=== PATIENT | male | born 2000 | race Caucasian/White ===

== ENCOUNTER 2025-09-17 16:58 | Emergency (ER) | payer OTHER, SELFPAY ==
[2025-09-17 17:04] VITALS: BP 134/87; PULSE 87; RESP 18; TEMP 36.6; O2SAT 98
--- NOTE | 2025-09-17 17:58 | ED.GENADUL_ITS ---
Discharge Plan Disposition Patient Disposition: Home Condition: Good Discharge Details Clinical Impression: Sinusitis Primary Care Provider: None,None ED Provider: Alexandra Elias Home Meds and New Rx's Prescriptions: New doxycycline hyclate 100 mg tablet 100 mg PO BID Qty: 14 0RF Discharge Instructions Instructions: Doxycycline, Sinusitis, Adult ED Additional Instructions: As we discussed, your exam is most consistent with sinus infection. This could be potientially be associated with your poor dentition and I recommend that you follow up with dentist. List for dentist is attached. The antibiotic you are being started on will cover for both a direct infection of the sinus as well as dental cause. Even if symptoms improve, please take the entire course. Encourage hydration. You may use Tylenol and/or Ibuprofen as needed for discomfort. A referral to local primary care has also been sent. It is common for swelling to be present particularly in the morning. You can reduce this by trying to elevate the head of your bed or propping yourself up with pillows as this will help prevent the increased swelling due to gravity. A cool compress can also help with swelling. If you develop any fever/chills, significantly increased swelling, inability to stay hydrated, difficulty swallowing, shortness of breath or problems with your vision, please seek care urgently once again. Otherwise complete follow-up with dentist, primary care and take the antibiotics as prescribed. Work note is attached. Stand Alone Forms: Portal Information, Work Release Discharge Data Discharge Date/Time-TO BE ENTERED AT DEPARTURE: 09/17/25 18:27 HPI General Date/Time Provider Initiated Documentation: 09/17/25 17:27 . Limitations to Documentation: no limitations . Information obtained by: patient, family (Mom) and RN notes reviewed . History of Present Illness 25 year old M presents to the emergency department with the chief complaint of Left-sided cheek swelling, described as moderate, Quality is described as aching and constant, and is localized to the face. Patient reports no radiation. Patient started experiencing this day(s) and it has been constant. No relieving factors improve symptom(s), Other factors that worsen symptoms (Worse when he first wakes) . Patient notes no other symptoms.; denies fever/chills, headaches, loss of appetite, nausea/vomiting, rash and shortness of breath. Patient did receive the following treatments prior to arrival, other (Tried Benadryl with no relief) Related Data Home Medications ?Medication ?Instructions ?Recorded ?Confirmed doxycycline hyclate 100 mg tablet 100 mg PO BID #14 ta bs 09/17/25 Previous Rx's ?Medication ?Instructions ?Recorded doxycycline hyclate 100 mg tablet 100 mg PO BID #14 ta bs 09/17/25 Allergies Allergy/AdvReac Type Severity Reaction Status Date / Time dexmethylphenidate HCl (From Allergy Mild RASH Unverified 09/17/25 17:09 Focalin) Penicillins Allergy Mild RASH Unverified 09/17/25 17:09 General Stated Complaint: DentalOral COLEEN: 4 Review of Systems Constitutional Constitutional: Reports as per HPI, Denies chills, Denies fever(s), Denies headache(s) and Denies poor appetite Eyes Eyes: Denies change in vision and Denies irritation ENT Ears, Nose, Mouth, and Throat: Reports as per HPI, Denies dysphagia, Denies ear discharge, Denies otalgia, Reports facial pain, Denies headache(s), Denies hoarseness, Denies lip swelling, Denies epistaxis, Denies mouth lesions, Denies mouth pain, Reports nasal congestion, Reports nasal discharge, Denies odynophagia, Reports sinus pain (Left) and Denies sore throat Cardiovascular Cardiovascular: Reports as per HPI and Denies chest pain Respiratory Respiratory: Reports as per HPI and Denies cough Gastrointestinal Gastrointestinal: Reports as per HPI, Denies dysphagia, Denies nausea, Denies odynophagia and Denies vomiting Integumentary/Breasts Skin/Breast: Reports as per HPI Neurologic Neurologic: Reports as per HPI and Denies headache(s) Allergic/Immunologic Allergic/Immunologic: Denies lip swelling Exam Const General: cooperative, healthy appearing, comfortable, no acute distress, well developed and well groomed Nutritional Appearance: average body habitus and well nourished Orientation: alert and awake [facility] Head: normal to inspection, normocephalic and atraumatic Ears: hearing grossly normal bilaterally, external ears normal and TM's normal bilaterally General nose exam: external nose normal and nares normal Face and sinus: face asymmetric, no abrasions, no crepitus, erythema (Some mild pinkness over the left cheek), no fluctuance, no lacerations, no maxillary instability, sinus tenderness maxillary (Left) and tenderness (Under her left eye) Face images: 2 1. Area of facial swelling. Patient has had pain over the last actually sinus. Does have some boggy mucosa. Also has very poor dentition abutting a similar area but no evidence of intraoral abscess at this time. Swelling does not involve the eye itself. No exophthalmos. Intact extraocular movements. Pupillary reflex is intact. No fluctuance, crepitus. Swelling is fairly localized to the left cheek and does not track down to the lower jaw or neck. Throat: posterior oropharynx normal, tonsils normal and uvula midline Eyes General: appearance normal, both eyes and all related structures Neck Neck: normal visual inspection, full ROM, no lymphadenopathy, supple and no anterior neck swelling Resp Effort & Inspection: normal respiratory effort, able to speak in complete sentences and no respiratory distress Auscultation: clear to auscultation bilaterally, no rales, no rhonchi and no wheezes Cardio Rate: regular rate Rhythm: regular rhythm Heart Sounds: S1 normal and S2 normal Skin General skin exam: no rashes or lesions noted Trauma: no lacerations or abrasions Neuro General: patient alert and patient awake Cognition: normal cognition Speech: speech normal Course Vital Signs Vital signs: Vital Signs Temperature 36.6 C 09/17/25 17:04 Pulse 87 09/17/25 17:04 Respiratory Rate 18 09/17/25 17:04 Blood Pressure 134/87 09/17/25 17:04 Pulse Oximetry 98 09/17/25 17:04 Temperature 36.6 C 09/17/25 17:04 Temperature Source Oral 09/17/25 17:04 Pulse 87 09/17/25 17:04 Respiratory Rate 18 09/17/25 17:04 Blood Pressure 134/87 09/17/25 17:04 Pulse Oximetry 98 09/17/25 17:04 Pain Level 6 09/17/25 17:04 Medical Decision Making Patient is a pleasant 25-year-old gentleman, otherwise healthy, presented with chief complaint of left-sided facial swelling. He reports that this began about 2 days ago. He stated that is worse in the morning. He is tender directly over the left sinus. No fevers or chills. Denies any dental pain but does state that he has a known bad tooth near the area of swelling. He has never had swelling like this historically. He denies any trauma. States that initially was concerned potential reaction to take Benadryl but did not have any improvement of his symptoms and this has not spread anywhere else. He has not had any shortness of breath, difficulty breathing, difficulty swallowing or swelling in the mouth or throat. On exam, patient appears nontoxic. He is hemodynamically stable. No acute distress. Handles secretions well. Does have some soft tissue swelling inferior to the left eye. It does not appear to involve the eye itself. No exophthalmos. Intact extraocular movements. No eye injection. Tender directly over the sinus but no pain elsewhere. No crepitus. No significant erythema, fluctuance. No indication to suggest an abscess. Patient does have some poor dentition, particularly near the #11 tooth which would correlate with area of tenderness associated with the swelling. However, no intraoral evidence of significant infection, no palpable dental abscess or pain with movement of the jaw, palpation of the gumline along the buccal or lingual side. He has no swelling of the posterior oropharynx, uvula is midline, no trismus. No swelling under the tongue. Patient discussed possibility of sinus issue versus dental cause of the swelling and discomfort of the left cheek. He is not having a joo dental pain but given the poor dentition and the proximity to the area of swelling questioning if there could be an issue at the root that could potentially be causing some pain near his sinuses versus a underlying sinus issue causing some spreading dental discomfort. Either way, I believe the patient needs oral antibiotics. Patient will also require follow-up with a dentist. Like a list of local dentist will be given to the patient we did discuss that he needs to follow-up with them for definitive care. Will begin him on antibiotics today and encouraged supportive care including increased hydration, Tylenol and ibuprofen as needed for discomfort. Cool compresses may also help with swelling and discomfort. Strict return precautions were discussed. Again, at this time no evidence to suggest necrotizing fasciitis deep space infection, Sada's, peritonsillar abscess, sepsis or other emergent process. All of his questions and concerns were addressed and he is in agreement this plan. Patient placed on list to get set up with local primary care and was also given a list for local dentist. Dictation completed using [employer] dictation software. Please excuse any errors or commercial account officer anomalies that may remain. [facility] All Active Problems (Updated 09/17/25 @ 18:03 by RAFIA Henry) Sinusitis (Acute) Social History Smoking risk assessment performed?: No Alcohol Intake: current Alcohol Intake frequency: 0-2 drinks per day Alcohol type: hard liquor Drug use: Socially Substance use type: marijuana Housing: other
== END 2025-09-17 18:27 | disposition home or self-care (01) ==
LOC: ER 18:19
PROVIDERS: Emergency Provider Physician Assistant
DX: J01.90 Acute sinusitis, unspecified (principal)
CPT/HCPCS: 99283